=== PATIENT | male | born 1945 | race Caucasian/White ===

== ENCOUNTER 2016-11-18 13:09 | Emergency (ER) | payer MEDICARE, MEDICAID ==
[~2016-11-18] VITALS: Ht 177.8 cm; Wt 89.0 kg
[2016-11-18] MEDS ORDERED: LISI40TA4 PO (13:29)
[2016-11-18] MEDS ORDERED: METO-298 PO (13:29)
[2016-11-18] MEDS ORDERED: NASOI NS (13:29)
[2016-11-18] MEDS ORDERED: PREZISTA (13:29)
[2016-11-18] MEDS ORDERED: GENVOYA (13:29)
[2016-11-18] MEDS ORDERED: FENO145T19 PO (13:29)
[2016-11-18] MEDS ORDERED: RITO100T PO (13:29)
[2016-11-18] MEDS ORDERED: ATOR-2 PO (13:29)
[2016-11-18] MEDS ORDERED: ISOS30TA6 PO (13:29)
[2016-11-18] MEDS ORDERED: ASPI-1159 PO (13:29)
[2016-11-18] MEDS ORDERED: SODIUM CHLORIDE 0.9% 1,000 ML IV ONE ×2 (14:51→16:25)
[2016-11-18 15:12] LABS: BASOPHILS % 0.3 % (0.0-2.0); EOSINOPHILS % 1.3 % (0.0-5.0); HEMATOCRIT. 38.5 % (42.0-52.0); HEMOGLOBIN. 13.5 g/dL (14.0-18.0); LYMPHOCYTES % 26.2 % (20.0-50.0); MEAN CORPUSCULAR HEMOGLOBIN 31.2 pg (28.0-32.0); MEAN CORPUSCULAR VOLUME 88.8 fL (80.0-94.0); MEAN PLATELET VOLUME 10.4 fl (7.4-10.4); MONOCYTES % 8.8 % (2.0-8.0); NEUTROPHILS % 63.4 % (40.0-76.0); PLATELET 182 x1000/uL (130-400); RED BLOOD CELL COUNT 4.34 mill/uL (4.7-6.1); RED CELL DISTRIBUTION WIDTH 15.4 % (11.6-14.6)
[2016-11-18 15:18] LABS: CARBON DIOXIDE 27 mEq/L (21-32); CHLORIDE 103 mEq/L (98-107)
[2016-11-18 15:21] LABS: ETHANOL BLOOD < 10 mg/dL
[2016-11-18 15:26] LABS: TROPONIN I < 0.02 ng/mL (0.00-0.04)
[2016-11-18 15:28] LABS: CLARITY URINE CLEAR (CLEAR); COLOR URINE YELLOW (YELLOW); GLUCOSE URINE 3+ (NEGATIVE); KETONES URINE NEGATIVE (NEGATIVE); LEUKOCYTE ESTERASE URINE NEGATIVE (NEGATIVE); NITRITE URINE NEGATIVE (NEGATIVE); OCCULT BLOOD URINE NEGATIVE (NEGATIVE); PH URINE 5.5 (4.5-8.0); PROTEIN URINE 1+ (NEGATIVE); SPECIFIC GRAVITY URINE 1.038 (1.005-1.030)
[2016-11-18 16:14] LABS: *AMPHETAMINES SCREEN URINE NEGATIVE (NEGATIVE); *BARBITURATES SCREEN URINE NEGATIVE (NEGATIVE); *BENZODIAZEPINES SCREEN URINE NEGATIVE (NEGATIVE); *COCAINE SCREEN URINE NEGATIVE (NEGATIVE); CANNABINOID URINE SCREEN NEGATIVE (NEGATIVE); METHADONE URINE SCREEN NEGATIVE (NEGATIVE); OPIATES URINE SCREEN NEGATIVE (NEGATIVE); PHENCYCLIDINE URINE SCREEN NEGATIVE (NEGATIVE)
[2016-11-18] MEDS ORDERED: INSULIN REGULAR (HUMULIN R) 300UNITS/3ML SUBCUT ONE (16:30)
[2016-11-18 18:50] VITALS: BP 136/61
== END 2016-11-18 19:04 | disposition home or self-care (01) ==
LOC: ER 13:11 → CANBEDREQ 18:39 → ER 19:04
DX: E86.0 Dehydration (principal); E11.65 Type 2 diabetes mellitus with hyperglycemia; I10 Essential (primary) hypertension; Z79.82 Long term (current) use of aspirin
CPT/HCPCS: 36415; 71010; 80053; 80305; 81001; 82010; 82962; 83605; 83880; 84484; 85025; 85610; 87040; 87086; 93005; 96360; 96372; 99285; G0482; J7030

== ENCOUNTER 2017-02-09 19:35 | Emergency (ER) | payer MEDICARE, MEDICAID ==
[~2017-02-09] VITALS: Ht 172.7 cm; Wt 80.0 kg
[~2017-02-09 19:35] MED LIST: ASPI-1159 PO; ATOR-2 PO; FENO145T19 PO; GENVOYA; ISOS30TA6 PO; LISI40TA4 PO; METO-298 PO; NASOI NS; PREZISTA; RITO100T PO
[2017-02-09 20:30] LABS: BASOPHILS % 0.4 % (0.0-2.0); EOSINOPHILS % 2.8 % (0.0-5.0); HEMATOCRIT. 39.3 % (42.0-52.0); HEMOGLOBIN. 13.8 g/dL (14.0-18.0); LYMPHOCYTES % 31.7 % (20.0-50.0); MEAN CORPUSCULAR HEMOGLOBIN 31.9 pg (28.0-32.0); MEAN CORPUSCULAR VOLUME 90.9 fL (80.0-94.0); MEAN PLATELET VOLUME 10.1 fl (7.4-10.4); NEUTROPHILS % 57.1 % (40.0-76.0); PLATELET 197 x1000/uL (130-400); RED BLOOD CELL COUNT 4.32 mill/uL (4.7-6.1); RED CELL DISTRIBUTION WIDTH 14.1 % (11.6-14.6)
[2017-02-09 20:32] LABS: CHLORIDE 100 mEq/L (98-107)
[2017-02-09 20:41] LABS: CARBON DIOXIDE 28 mEq/L (21-32)
[2017-02-09] MEDS ORDERED: INSULIN REGULAR (HUMULIN R) 300UNITS/3ML SUBCUT ONE (22:00)
[2017-02-09 23:42] VITALS: BP 142/77
== END 2017-02-10 00:54 | disposition home or self-care (01) ==
LOC: ER 20:21
DX: E11.65 Type 2 diabetes mellitus with hyperglycemia (principal); E03.9 Hypothyroidism, unspecified; E78.00 Pure hypercholesterolemia, unspecified; Z79.82 Long term (current) use of aspirin; Z79.4 Long term (current) use of insulin
CPT/HCPCS: 36415; 80053; 82962; 85025; 93005; 96372; 99285; J1815